=== PATIENT | female | born 2000 | race Caucasian/White ===

== ENCOUNTER 2021-01-01 19:10 | Emergency (ER) | payer SELFPAY ==
[~2021-01-01] VITALS: Ht 160 cm; Wt 110.5 kg
[2021-01-01 19:15] VITALS: BP 134/68
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
== END 2021-01-01 20:07 | disposition home or self-care (01) ==
LOC: ER 19:10 → EEVIPCON 19:10 → ER 20:07
DX: T74.21XA Adult sexual abuse, confirmed, initial encounter (principal)
CPT/HCPCS: 99281